=== PATIENT | female | born 1975 | race Caucasian/White ===

== ENCOUNTER 2018-06-23 19:21 | Emergency (ER) | payer MEDICAID ==
[~2018-06-23] VITALS: Ht 147.3 cm; Wt 66.7 kg
[2018-06-23 19:33] VITALS: Ht 147.3 cm; Wt 66.7 kg
[2018-06-23 21:08] LABS: BASOPHIL % 1.6 % (0-2); PLATELET COUNT 279 x10^3mcL (130-400); RED CELL DISTRIBUTION WIDTH 12.6 % (11.5-14.5)
[2018-06-23 22:11] VITALS: BP 116/82
== END 2018-06-23 22:11 | disposition home or self-care (01) ==
LOC: ED 19:21
PROVIDERS: Emergency Medicine
DX: O20.0 Threatened abortion (principal)
CPT/HCPCS: 36415